=== PATIENT | female | born 1965 | race Caucasian/White ===

== ENCOUNTER → 2017-02-07 | Outpatient (CLI) | payer MEDICARE | LOC: EMI 01-19 11:00 | DX: G35 Multiple sclerosis (principal); R90.82 White matter disease, unspecified | CPT/HCPCS: 70553; A9577; J7050 ==

== ENCOUNTER → 2021-08-06 | Outpatient (CLI) | payer OTHER ==
[2021-08-06 14:07] LABS: HEMOGLOBIN 15.6 gm/dl (12.3-15.3); RED BLOOD COUNT 5.42 M/UL (4.00-5.10)
[2021-08-07 08:14] LABS: IMMUNOGLOBULIN A, QN, SERUM 155 mg/dL (87-352); IMMUNOGLOBULIN G, QN, SERUM 850 mg/dL (586-1602); IMMUNOGLOBULIN M, QN, SERUM 125 mg/dL (26-217)
== END ==
LOC: LAB 12:22
PROVIDERS: Nurse Practitioner Family
DX: G35 Multiple sclerosis (principal)
CPT/HCPCS: 36415; 80053; 82784; 85025

== ENCOUNTER → 2021-08-07 | Outpatient (CLI) | payer OTHER | LOC: EMI 09:00 | DX: G35 Multiple sclerosis (principal) | CPT/HCPCS: 70553; A9577 ==